=== PATIENT | female | born 1955 | race Caucasian/White ===

== ENCOUNTER → 2019-10-20 | Day surgery (SDC) | payer BC ==
[~2019-10-20] MED LIST: Ketamine 200 MG/20 ML MDV IV ONE; Lactated Ringers 1,000 ML IV SCH; Propofol 200 MG/20 ML SDV IV ONE
--- NOTE | 2019-10-20 15:26 | OR ---
DATE OF OPERATION: 10/20/2019 PREOPERATIVE DIAGNOSIS: HISTORY OF POLYPS. POSTOPERATIVE DIAGNOSIS: HISTORY OF POLYPS. SURGEON: Siva Espinoza MD PROCEDURE: FULL-LENGTH COLONOSCOPY WITH FORCEPS POLYP REMOVAL X1, BIOPSIES X3. ANESTHESIA: MAC. COMPLICATIONS: None. SPECIMEN: 1. Cecal biopsy of lipoma. 2. Sessile polyp, rectosigmoid junction. 3. Biopsy x2, focal colitis, distal sigmoid colon. FINDINGS: 1. Full-length colonoscopy. 2. Small lipoma, cecal pouch. 3. Sessile polyp less than 5 mm, rectosigmoid junction. 4. Two small focal ulcerations, distal sigmoid colon. RECOMMENDATIONS: Plan followup colonoscopy in 5 years pending path reports. INDICATIONS: The patient was seen by Loraine Porter, her primary provider for routine physical. She is overdue for a followup scope for a history of polyps, Loranie sent her for such. DESCRIPTION OF PROCEDURE: The patient was prepped and draped, placed in the left lateral decubitus position. A lubricated Olympus colonoscope was inserted and easily advanced to the cecum. Direct visualization of the ileocecal valve and appendiceal orifice was accomplished. The bowel prep was excellent. Upon withdrawal, right in the cecal pouch, the patient had a smaller lipomatous- appearing lesion in the cecum. We did a biopsy of it for confirmation. The rest of the ascending, transverse, and descending colons were completely benign. In the sigmoid colon at 40 and 35 cm, the patient had 2 small very focal ulcerations of unclear etiology. Biopsy of each was taken. She had no diverticula throughout the length of the colon, and in the rectosigmoid junction, the patient had a small sessile polyp approximately 3 to 4 mm, removed in its entirety with 2 forceps biopsies. The rest of the rectal vault was benign. Retroflexion showed no anal lesions. Air was suctioned, scope removed without complication. DANI/TORO /[id number]
== END ==
LOC: CC.SDS 09:18
PROVIDERS: ATTEND Family Medicine
DX: Z12.11 Encounter for screening for malignant neoplasm of colon (principal); K63.5 Polyp of colon; K51.90 Ulcerative colitis, unspecified, without complications; M85.80 Other specified disorders of bone density and structure, unspecified site; K21.9 Gastro-esophageal reflux disease without esophagitis; E78.5 Hyperlipidemia, unspecified; E55.9 Vitamin D deficiency, unspecified; Z86.19 Personal history of other infectious and parasitic diseases; Z88.0 Allergy status to penicillin; Z88.1 Allergy status to other antibiotic agents; Z88.8 Allergy status to other drugs, medicaments and biological substances; Z79.82 Long term (current) use of aspirin; Z79.899 Other long term (current) drug therapy; Z86.010 Personal history of colon polyps
CPT/HCPCS: 45380; J2704

== ENCOUNTER 2025-03-07 06:54 | Day surgery (SDC) | payer MEDICARE, BC ==
[2025-03-07] MEDS: Lactated Ringers 1,000 ML IV SCH (07:07)
[2025-03-07] MEDS ORDERED: Propofol 200 MG/20 ML SDV ONE ×2 (07:35)
== END 2025-03-07 08:56 | disposition home or self-care (01) ==
LOC: CC.SDS 06:54
PROVIDERS: ATTEND Family Medicine
DX: Z12.11 Encounter for screening for malignant neoplasm of colon (principal); K62.1 Rectal polyp; K57.30 Diverticulosis of large intestine without perforation or abscess without bleeding; I10 Essential (primary) hypertension; E78.5 Hyperlipidemia, unspecified; K21.9 Gastro-esophageal reflux disease without esophagitis; Z88.1 Allergy status to other antibiotic agents; Z88.0 Allergy status to penicillin; Z88.8 Allergy status to other drugs, medicaments and biological substances; Z79.899 Other long term (current) drug therapy
CPT/HCPCS: 00811; 88305; J2704; J7120